=== PATIENT | female | born 1980 | race Two or more races ===

== ENCOUNTER 2025-03-16 14:12 | Outpatient (OUT) | payer SELFPAY ==
--- NOTE | 2025-03-16 14:24 | XR_ITS ---
[place] [address] Patient Name: SPEEDY GUILLEN MRN: [id number] date: 1980 Sex: F Assigned Patient Location: [facility] Current Patient Location: [facility] Accession/Order Number: [id number] Exam Date: 03/16/2025 15:29 Report Date: 03/16/2025 15:30 At the request of: NON-STAFF PHYSICIAN MD Procedure: XR hand CHUCK 2V 2 views both hands HISTORY: Joint pain Minor interphalangeal degenerative changes. Adequate alignment. No acute bony findings. Unremarkable soft tissues. XR/XR hand CHUCK 2V IMPRESSION: Mild bilateral hand degeneration Impression dictated by: Jose Caballero M.D.03/16/2025 3:30 PM Dictation Location: [place] [address] Electronically authenticated by: [id number] Y Date: 03/16/2025 15:30
--- NOTE | 2025-03-16 14:24 | XR_ITS ---
[facility] [place] [id number] Patient Name: SPEEDY GUILLEN MRN: [id number] date: 1980 Sex: F Assigned Patient Location: [facility] Current Patient Location: [facility] Accession/Order Number: [id number] Exam Date: 03/16/2025 15:28 Report Date: 03/16/2025 15:29 At the request of: NON-STAFF PHYSICIAN MD Procedure: XR wrist CHUCK min 2v 2 views both wrist HISTORY: Chronic multiple joint pain. Pain base of right thumb. Mild first carpometacarpal degenerative changes on the right. Adequate alignment. No acute bony findings. Unremarkable soft tissues. XR/XR wrist CHUCK min 2v IMPRESSION: Mild right first carpometacarpal degenerative change. Unremarkable left wrist. Impression dictated by: Jose Caballero M.D.03/16/2025 3:29 PM Dictation Location: [place] [address] Electronically authenticated by: [id number] Y Date: 03/16/2025 15:29
== END 2025-03-16 14:13 | disposition home or self-care (01) ==
LOC: RAD 14:17
DX: Z12.31 Encounter for screening mammogram for malignant neoplasm of breast (principal); M25.50 Pain in unspecified joint; M79.642 Pain in left hand; M79.641 Pain in right hand; M25.532 Pain in left wrist; M25.531 Pain in right wrist; M19.042 Primary osteoarthritis, left hand; M19.041 Primary osteoarthritis, right hand
CPT/HCPCS: 73100; 73120